=== PATIENT | female | born 1955 | race Caucasian/White ===

== ENCOUNTER → 2018-07-21 | Outpatient (CLI) | payer OTHER ==
[~2018-07-21] MED LIST: CALCIUM 600 +1 EAC1 PO; HYDROCODON-ACE1 EAC7 PO; PRILOSEC 10MG C10 MG PO
== END ==
LOC: M.RAD 09:43
DX: R05 Cough (principal); R06.02 Shortness of breath

== ENCOUNTER 2018-12-12 08:06 | Emergency (ER) | payer OTHER ==
[~2018-12-12] VITALS: Ht 162.6 cm; Wt 74.4 kg
[2018-12-12] MEDS ORDERED: LIPITOR 20 MG T20 M1 PO (08:16)
[2018-12-12] MEDS ORDERED: NORVASC5 MG PO (08:16)
[2018-12-12] MEDS ORDERED: LISINOPRIL20 MG PO (08:16)
[2018-12-12] MEDS ORDERED: ZPAK PO (09:21)
[2018-12-12] MEDS ORDERED: TESSALON PERLE100 MG PO ×2 (09:21→09:23)
[2018-12-12 09:30] VITALS: BP 130/78
== END 2018-12-12 09:30 | disposition home or self-care (01) ==
LOC: M.ERS 08:06
DX: J40 Bronchitis, not specified as acute or chronic (principal); I10 Essential (primary) hypertension; K21.9 Gastro-esophageal reflux disease without esophagitis; Z77.22 Contact with and (suspected) exposure to environmental tobacco smoke (acute) (chronic)